=== PATIENT | female | born 1960 | race Two or more races ===

== ENCOUNTER 2021-09-30 16:54 | Emergency (ER) | payer OTHER ==
[~2021-09-30] VITALS: Ht 149.9 cm; Wt 68.0 kg
[2021-09-30] MEDS ORDERED: ZESTRIL10 M1 PO (17:11)
[2021-09-30] MEDS ORDERED: SYNTHROID100 MCG PO (17:12)
== END 2021-09-30 22:43 | disposition home or self-care (01) ==
LOC: ER 16:54
DX: R42 Dizziness and giddiness (principal); F41.9 Anxiety disorder, unspecified; F15.20 Other stimulant dependence, uncomplicated; Z88.6 Allergy status to analgesic agent; Z88.0 Allergy status to penicillin; Z91.013 Allergy to seafood; I10 Essential (primary) hypertension